=== PATIENT | male | born 1955 | race Caucasian/White ===

== ENCOUNTER 2024-12-08 13:59 | Inpatient (IN) | payer OTHER, MEDICAID ==
[2024-12-08] VITALS (46 sets, daily range): BP systolic 30–135; BP diastolic 13–111; PULSE 68–201; RESP 11–38; TEMP 36.4–38.4; O2SAT 94
[~2024-12-08] VITALS: Ht 170.2 cm; Wt 67.1 kg
[2024-12-08] MEDS: IPRATROPIUM BROMIDE (0.02%) 0.5MG/2.5ML NEB HHN ONE (14:23)
[2024-12-08] MEDS: ALBUTEROL (0.083%) 2.5MG/3ML NEB HHN ONE (14:23)
[2024-12-08] MEDS: SODIUM CHLORIDE 0.9% (SEPSIS BOLUS) IV ONE (14:54)
[2024-12-08] MEDS: CEFTRIAXONE 2GM/50ML 50 ML IV ONE (14:54)
[2024-12-08] MEDS: SODIUM CHLORIDE 0.9% 1,000 ML IV ONE ×2 (14:54→18:47)
[2024-12-08 15:01] LABS: HEMATOCRIT. 47.3 % (42.0-52.0); HEMOGLOBIN. 15.5 g/dL (14.0-18.0); MEAN PLATELET VOLUME 11.3 fl (7.4-10.4); PLATELET 63 x1000/uL (130-400); RED BLOOD CELL COUNT 4.39 mill/uL (4.7-6.1); RED CELL DISTRIBUTION WIDTH 14.7 % (11.6-14.6)
[2024-12-08 15:06] LABS: BG BASE EXCESS -12.7 mmol/L (-2.0-3.0); BG CARBOXYHEMOGLOBIN 0.0 % (0.5-1.5); BG DEOXYHEMOGLOBIN 0.4 % (0.0-5.0); BG FRACTION INSPIRED OXYGEN 50; BG HCO3 ACT 9.2 mmol/L (21.0-28.0); BG METHEMOGLOBIN 0.3 % (0.5-1.5); BG OXYGEN SATURATION 99.6 % (94.0-98.0); BG OXYHEMOGLOBIN 99.3 % (94.0-98.0); BG PCO2 16.2 mmHg (35.0-48.0); BG PH 7.370 (7.350-7.450); BG PO2 241.0 mmHg (83.0-108.0); BG SAMPLE SITE LEFT RADIAL; BG TOTAL HEMOGLOBIN 16.6 g/dL (13.5-17.5); BG VENT MODE MASK - BIPAP
[2024-12-08] MEDS: METHYLPREDNISOLONE SOD SUCC 125MG/2ML (ACT-O-VIAL) IV ONE (15:11)
[2024-12-08 15:14] LABS: CREATININE 2.5 mg/dL (0.6-1.3); UREA NITROGEN BLOOD 30 mg/dL (9-23)
[2024-12-08 15:16] LABS: ASPARTATE AMINOTRANSFERASE 173 IU/L (<34); BILIRUBIN DIRECT 0.6 mg/dL (<=3.0); BILIRUBIN TOTAL 1.4 mg/dL (0.1-1.0); PROTEIN TOTAL 7.3 g/dL (6.0-8.3)
[2024-12-08 15:25] LABS: TROPONIN I HIGH SENSITIVITY 1659 ng/L (3.0-53)
[2024-12-08 15:34] LABS: BAND% 1.0 % (1.0-6.0); LYMPHOCYTES % MANUAL 5.0 % (20.0-50.0); MONOCYTES % MANUAL 10.0 % (2.0-8.0); NEUTROPHILS % MANUAL 84.0 % (45.0-75.0); PLATELET ESTIMATE DECREASED
[2024-12-08] MEDS ORDERED: ACETAMINOPHEN 325MG TABLET PO PRN (16:45)
[2024-12-08] MEDS ORDERED: ONDANSETRON HCL 4MG/2ML INJ IV PRN (16:45)
[2024-12-08] MEDS ORDERED: CLONIDINE 0.1MG TABLET PO PRN (16:45)
[2024-12-08] MEDS ORDERED: IPRATROPIUM/ALBUTEROL 0.5-3(2.5)MG/3ML NEB NEB PRN (16:45)
[2024-12-08] MEDS ORDERED: GUAIFENESIN 200MG/10ML SUGAR FREE UDC PO PRN (16:45)
[2024-12-08] MEDS ORDERED: DOCUSATE SODIUM 100MG CAPSULE PO PRN (16:45)
[2024-12-08] MEDS ORDERED: MAGNESIUM/ALUMINUM HYDROXIDE/SIMETHICONE 30ML UDC PO PRN (16:45)
[2024-12-08 17:22] LABS: TROPONIN I HIGH SENSITIVITY 1900 ng/L (3.0-53)
[2024-12-08 17:55] LABS: CREATINE KINASE MB FRACTION 21.5 ng/mL (0.5-3.6)
[2024-12-08 17:56] LABS: PHOSPHORUS 2.9 mg/dL (2.5-4.9)
[2024-12-08] MEDS ORDERED: SODIUM CHLORIDE 0.9% 500 ML IV NR (18:00)
[2024-12-08] MEDS: AMIODARONE 150MG/100ML D5W 100 ML IV NR (18:46)
[2024-12-08] MEDS: NOREPINEPHRINE 8MG/250ML PMX 250 ML IV PRN (18:53)
[2024-12-08 18:54] LABS: BG BASE EXCESS -21.6 mmol/L (-2.0-3.0); BG CARBOXYHEMOGLOBIN 0.2 % (0.5-1.5); BG DEOXYHEMOGLOBIN 0.1 % (0.0-5.0); BG FRACTION INSPIRED OXYGEN 100; BG HCO3 ACT 11.4 mmol/L (21.0-28.0); BG METHEMOGLOBIN 0.4 % (0.5-1.5); BG OXYGEN SATURATION 99.9 % (94.0-98.0); BG OXYHEMOGLOBIN 99.3 % (94.0-98.0); BG PCO2 58.8 mmHg (35.0-48.0); BG PEEP (cmH2O) 5.0 cmH2O; BG PH 6.907 (7.350-7.450); BG PO2 434.6 mmHg (83.0-108.0); BG SAMPLE SITE RIGHT FEMORAL; BG TIDAL VOLUME(mL) 450.0 mL; BG TOTAL HEMOGLOBIN 13.5 g/dL (13.5-17.5); BG VENT MODE VENT - AC; BG VENT RATE 16.0 set
[2024-12-08] MEDS: VASOPRESSIN 20 UNIT in SODIUM CHLORIDE 0.9% 99 ML IV PRN (18:54)
[2024-12-08] MEDS: SODIUM BICARBONATE 8.4% 50MEQ/50ML SYR IV SCH ×2 (19:03→20:34)
[2024-12-08] MEDS: LACTATED RINGERS 1,000 ML IV SCH (19:04)
[2024-12-08] MEDS: SODIUM BICARBONATE 150 MEQ in DEXTROSE 5% WATER 850 ML IV SCH (19:46)
[2024-12-08] MEDS: MILRINONE 20MG-DEXT 5% PREMIX 100 ML IV PRN (19:47)
[2024-12-08] MEDS: VANCOMYCIN 1.25GM/250ML 250 ML IV SCH (19:52)
[2024-12-08] MEDS: ENOXAPARIN 60MG/0.6ML SYR SUBCUT SCH (19:52)
[2024-12-08] MEDS: PHENYLEPHRINE 50MG/250ML PMX 250 ML IV PRN (20:09)
[2024-12-08] MEDS: SODIUM CHLORIDE 10% FOR INH 15ML NEB INH SCH (20:30)
[2024-12-08] MEDS: IPRATROPIUM/ALBUTEROL 0.5-3(2.5)MG/3ML NEB HHN SCH (20:33)
[2024-12-08] MEDS: CEFEPIME 1GM/50ML 50 ML IV SCH (20:34)
[2024-12-08] MEDS: ACETAMINOPHEN 325MG TABLET PO PRN (20:35)
[2024-12-08] MEDS: SODIUM CHLORIDE 0.9% 1,000 ML IV SCH (20:41)
[2024-12-08] MEDS: NOREPINEPHRINE 32 MG in DEXT 5% WATER 218 ML IV PRN (23:18)
[2024-12-09] VITALS (25 sets, daily range): BP systolic 33–183; BP diastolic 13–160; PULSE 110–143; RESP 16–23; TEMP 36.1–37.3
[2024-12-09] MEDS: PHENYLEPHRINE 100 MG in DEXT 5% WATER 240 ML IV PRN (01:01)
[2024-12-09 01:21] LABS: TROPONIN I HIGH SENSITIVITY 4192 ng/L (3.0-53)
[2024-12-09 03:36] LABS: HEPATITIS A AB IGM NEGATIVE (Negative)
[2024-12-09 03:37] LABS: HEPATITIS B CORE AB IGM NEGATIVE (Negative); HEPATITIS C AB NON REACTIVE (Neg) (Negative)
[2024-12-09] MEDS: DEXTROSE 50% WATER 50ML SYRINGE IV ONE ×2 (04:05→04:12)
[2024-12-09] MEDS: EPINEPHRINE 10 MG in SODIUM CHLORIDE 0.9% 240 ML IV PRN (05:19)
[2024-12-09] MEDS ORDERED: PANTOPRAZOLE SODIUM 40 MG/VIAL IV SCH (09:00)
== END 2024-12-09 03:17 | DRG 871 ==
LOC: ER 13:59 → CVICU 16:11 → ENRESERV 17:05
PROVIDERS: ADMIT Internal Medicine; ATTEND Internal Medicine
PROC: 06HY33Z Insertion of Infusion Device into Lower Vein, Percutaneous Approach (ICD-10-PCS; 2024-12-08)
PROC: B54BZZA Ultrasonography of Right Lower Extremity Veins, Guidance (ICD-10-PCS; 2024-12-08)
PROC: 5A1935Z Respiratory Ventilation, Less than 24 Consecutive Hours (ICD-10-PCS; principal; 2024-12-09)
PROC: 0BH17EZ Insertion of Endotracheal Airway into Trachea, Via Natural or Artificial Opening (ICD-10-PCS; 2024-12-09)
PROC: 5A12012 Performance of Cardiac Output, Single, Manual (ICD-10-PCS; 2024-12-09)
DX: A41.9 Sepsis, unspecified organism (principal); D65 Disseminated intravascular coagulation [defibrination syndrome]; G92.8 Other toxic encephalopathy; J96.01 Acute respiratory failure with hypoxia; I21.A1 Myocardial infarction type 2; R65.21 Severe sepsis with septic shock; E87.20 Acidosis, unspecified; N17.9 Acute kidney failure, unspecified; J44.9 Chronic obstructive pulmonary disease, unspecified; F17.290 Nicotine dependence, other tobacco product, uncomplicated; E80.6 Other disorders of bilirubin metabolism; N18.9 Chronic kidney disease, unspecified
CPT/HCPCS: 31500; 36415; 36600; 71045; 80048; 80076; 82375; 82550; 82553; 82805; 82962; 83605; 83735; 83880; 84100; 84145; 84153; 84484; 85025; 85379; 85384; 86705; 86709; 87070; 87077; 87186; 87340; 93005; 94002; 94003; 94070; 94640; 94660; 96365; 96375; 99291; J0282; J0692; J0696; J1650; J2260; J2371; J2919; J3373; J3490; J7030; J7050; J7060; J7070; J7120; J7131